=== PATIENT | male | born 1975 | race Asian ===

== ENCOUNTER 2023-11-25 12:22 | Emergency (ER) | payer BC, SELFPAY ==
[2023-11-25 12:23] VITALS: BP 123/88
--- NOTE | 2023-11-25 13:07 | ED.GENMED ---
History of Present Illness
General
Chief Complaint: Abdominal Symptoms
Time Seen by Provider: 11/25/23 12:43
History of Present Illness
History of Present Illness:
48-year-old male with history of diabetes, insulin-dependent, hyperlipidemia presenting to the emergency department for abdominal pain. Patient reports about 8 days ago he started to have some lower back pain. Few days later, progressed to right
lower quadrant pain. Pain was initially a dull ache, has now become more constant. He is now also having left lower quadrant pain as of yesterday. Denies any associated nausea or vomiting. Denies changes in his stool. Denies chest pain or
difficulty breathing. Does report history of diverticulitis in the past. Denies any abdominal surgeries. Denies any fever. Denies any inciting injury or trauma. Denies any additional medical complaints
Past History
Past History
ED Past Medical History: Asthma, HTN, Hypercholesterolemia, IDDM, Psychiatric and Other (Obstructive sleep apnea, degenerative joint disease)
ED Past Surgical History: Orthopedic
Social History
Tobacco: Non-smoker
Alcohol: None
Drug: None
Personal:
Living: with family
Family History
Family History: Diabetes and Other (Father had a stroke)
Phy Exam
Physical Exam
Physical Exam:
General: Well-appearing, no clinical signs of dehydration, nontoxic and in no acute distress
HEENT: protecting airway
Neck: appears supple
CV: Normal heart rate, regular rhythm
Resp: No accessory muscle use, no increased work of breathing, lungs clear to auscultation bilaterally
Abd: Soft and non-distended, reproducible right lower and left lower quadrant pain without rebound or guarding
Extremities: No deformities, no swelling, no erythema
Neuro: alert, no focal neurologic deficit
: deferred
Rectal: deferred
Psych: Normal affect
Skin: Intact
Course
Orders/Labs/Results
Orders:
Orders
11/25/23 12:55
0.9% Sodium Chloride 1000 ml [Nss] 1,000 ml IV BOLUS
Iohexol [Omnipaque] See Protocol PO NOW STA
Ketorolac [Toradol] 15 mg IV NOW STA
11/25/23 12:56
CT Abd/pel W Iv And Oral Contr Urgent
Comment:
Reason For Exam: RLQ pain
11/25/23 13:26
Complete Blood Count/With Diff Urgent
Comprehensive Metabolic Panel Urgent
Lipase Urgent
Urinalysis Reflex To Culture Urgent
Date Specimen was Collected: 11/25/23
Time Specimen was Collected: 13:20
11/25/23 13:26
11/25/23 13:26
Vital Signs
Initial and Last Documented VS:
Initial Vital Signs
Temp Pulse Resp BP Pulse Ox
98.6 F 87 16 123/88 98
11/25/23 12:23 11/25/23 12:23 11/25/23 12:23 11/25/23 12:23 11/25/23 12:23
Last Documented Vital Signs
Temp Pulse Resp BP Pulse Ox
98.6 F 70 16 133/115 92
11/25/23 12:23 11/25/23 15:06 11/25/23 15:06 11/25/23 15:07 11/25/23 15:06
MDM/Problems Addressed
MDM/Problems Addressed:
48-year-old male with past medical history of diabetes and hyperlipidemia presenting for lower abdominal pain. Vital signs are normal.
On exam, patient well-appearing, nontoxic. No acute distress. Patient with reproducible right lower quadrant and left lower quadrant pain. Differential considerations include diverticulitis, enteritis, appendicitis. For this reason we will
proceed with laboratory analysis and CT abdominal imaging with IV and oral contrast. Toradol administered for pain. Will administer IV fluids.
17:10 -Labs unremarkable. CT without evidence of acute process. At this time suspect musculoskeletal component. Patient remains hemodynamically stable. Feel stable for discharge. Advised Motrin as needed for pain. Strict return precautions
communicated to patient verbalized
*Critical Care Note
Total Time (30-74mins, 75-104mins- exclusive of procedures): Not Applicable
ED Attending Note
-
Portions of this chart may have been created with voice recognition software.� Occasional wrong word or��sound alike� substitutions may have occurred due to the inherent limitations of voice recognition software.
Discharge Plan
Departure
Prescriptions:
No Action
citalopram 20 MG tablet
40 mg PO DAILY
simvastatin 20 MG tablet
20 mg PO QPM
metformin 1,000 MG tablet
1,000 mg PO BID
losartan 25 MG tablet
25 mg PO DAILY
albuterol sulfate [Albuterol Sulfate HFA] 18 GM HFA aerosol inhaler
18 gm inhalation DAILY PRN (Reason: sob)
bupropion HCl 150 MG tablet extended release 24 hr
300 mg PO DAILY
fenofibrate nanocrystallized 145 MG tablet
145 mg PO DAILY
insulin aspart (niacinamide) [Fiasp U-100 Insulin] 100 UNIT/ML solution
100 unit SQ .PUMP
Patient Comments:
sensitivity 15
carbs 6-1
dulaglutide [Trulicity] 1.5 MG/0.5 ML pen injector
1.5 mg SQ WEEKLY
Referrals:
Jyoti Chau MD [Family Provider] -
Interventions
Interventions:
*Risk Screen - Suicide Last Done: 11/25/23 13:19
*General Assessment Last Done: 11/25/23 13:19
*Neglect/Abuse Screening Last Done: 11/25/23 13:19
ED- Fall Risk Assessment Last Done: 11/25/23 13:19
*ED COVID-19 Vaccine History Last Done: 11/25/23 13:19
PQ-Gxbsrh-Wgsfrwxqzj Assessment Last Done: 11/25/23 13:19
Discharge Date and Time
Print Language: HUNGARIAN
[2023-11-25 13:19] VITALS: BMI 32.6
[2023-11-25] MEDS: TORADOL 15 MG IV (13:35)
[2023-11-25] MEDS: NSS 1000 IV (13:35)
[2023-11-25] MEDS: OMNIPAQUE 50 ML PO (13:36)
[2023-11-25 13:38] VITALS: BP 128/77
[2023-11-25 13:58] LABS: % Basophils 0.7 % (0-2); % Eosinophils 2.2 % (0-6); % Immature Granulocytes 0.2 % (0-0.5); % Lymphocytes 33.7 % (20.5-51.1); % Monocytes 7.1 % (1.7-9.3); % Neutrophils 56.1 % (42.2-75.2); Absolute Eosinophils 0.1 10^3/uL (0-0.7); Absolute Lymphocytes 1.9 10^3/uL (1.2-3.4); Absolute Monocytes 0.4 10^3/uL (0.1-0.6); Absolute Neutrophils 3.1 10^3/uL (1.4-6.5); Hemoglobin 14.5 g/dL (13.0-18.0); Mean Corp Hgb Conc. 35.4 g/dL (33.0-37.0); Mean Corpuscular Hgb 30.9 pg (27.0-31.0); Mean Corpuscular Volume 87.2 fL (80.0-94.0); Mean Platelet Volume 9.8 fL (7.4-10.4); Nucleated Red Blood Cells % 0 % (-); Platelet Count 394 10^3/uL (130-400); Red Cell Dist. Width 12.8 % (11.5-14.5); White Blood Cell Count 5.5 10^3/uL (4.8-10.8)
[2023-11-25 14:00] VITALS: BP 124/80
[2023-11-25 14:08] LABS: Urine Albumin Negative (Neg - Trace); Urine Bilirubin Negative (Negative); Urine Character Clear (Clear); Urine Color Yellow; Urine Glucose Negative (Negative); Urine Ketone Negative (Negative); Urine Leukocyte Negative (Negative); Urine Nitrite Negative (Negative); Urine Occult Blood Negative (Negative); Urine Urobilinogen Negative (Neg - 1+)
[2023-11-25 14:17] LABS: ALT (SGPT) 34 U/L (0-50); AST (SGOT) 32 U/L (17-59); Albumin 4.7 g/dl (3.5-5.0); Alkaline Phosphatase 49 U/L (38-126); Blood Urea Nitrogen 18 mg/dl (9-20); Calcium 10.2 mg/dl (8.4-10.2); Carbon Dioxide 26 mmol/L (22-30); Chloride 105 mmol/L (98-107); Estimated Creatinine Clearance 100 ml/min; Glucose 90 mg/dl (70-99); Lipase 173 U/L (23-300); Potassium 4.4 mmol/L (3.5-5.1); Sodium 139 mmol/L (135-145); Total Bilirubin 0.4 mg/dl (0.2-1.3); Total Protein 7.1 g/dl (6.3-8.2); eGFR > 60.00
[2023-11-25 15:00] VITALS: BP 122/86
[2023-11-25 15:07] VITALS: BP 133/115
[2023-11-25 17:26] VITALS: BP 125/81
== END 2023-11-25 17:26 | disposition home or self-care (01) ==
LOC: EMR 12:22
PROVIDERS: EMERGENCY PHYSICIAN Student in an Organized Health Care Education/Training Program; FAMILY PHYSICIAN Family Medicine
DX: R10.30 Lower abdominal pain, unspecified (principal); E11.9 Type 2 diabetes mellitus without complications; E78.00 Pure hypercholesterolemia, unspecified
CPT/HCPCS: 99285; 96374; 96361; 74177; 80053; 81003; 83690; 85025; Q9967

== ENCOUNTER 2024-01-15 15:46 | Emergency (ER) | payer BC, SELFPAY ==
[2024-01-15 15:50] VITALS: BP 123/79
[2024-01-15 16:13] LABS: % Basophils 0.5 % (0-2); % Immature Granulocytes 0.3 % (0-0.5); % Lymphocytes 24.3 % (20.5-51.1); % Monocytes 6.6 % (1.7-9.3); % Neutrophils 66.3 % (42.2-75.2); Absolute Eosinophils 0.2 10^3/uL (0-0.7); Absolute Lymphocytes 1.8 10^3/uL (1.2-3.4); Absolute Monocytes 0.5 10^3/uL (0.1-0.6); Hematocrit 43.5 % (39.0-52.0); Mean Corp Hgb Conc. 34.5 g/dL (33.0-37.0); Mean Corpuscular Hgb 30.5 pg (27.0-31.0); Mean Corpuscular Volume 88.6 fL (80.0-94.0); Mean Platelet Volume 9.8 fL (7.4-10.4); Nucleated Red Blood Cells % 0 % (-); Platelet Count 405 10^3/uL (130-400); Red Blood Cell Count 4.91 10^6/uL (4.70-6.10); Red Cell Dist. Width 12.9 % (11.5-14.5); White Blood Cell Count 7.6 10^3/uL (4.8-10.8)
[2024-01-15 16:27] LABS: ALT (SGPT) 41 U/L (0-50); AST (SGOT) 36 U/L (17-59); Albumin 4.9 g/dl (3.5-5.0); Alkaline Phosphatase 58 U/L (38-126); Blood Urea Nitrogen 18 mg/dl (9-20); Carbon Dioxide 25 mmol/L (22-30); Chloride 105 mmol/L (98-107); Glucose 141 mg/dl (70-99); Potassium 5.1 mmol/L (3.5-5.1); Sodium 145 mmol/L (135-145); Total Bilirubin 0.4 mg/dl (0.2-1.3); Total Protein 7.5 g/dl (6.3-8.2); eGFR > 60.00
--- NOTE | 2024-01-15 16:45 | ED.GENMED ---
History of Present Illness
General
Chief Complaint: Headache
Source: patient
Exam Limitations: none
Time Seen by Provider: 01/15/24 16:31
Nursing documentation reviewed up to this point in time: agreed with
History of Present Illness
History of Present Illness:
48-year-old male with past medical history of asthma, hypertension, hyperlipidemia, diabetes, ORALIA on CPAP who presents to the ER for evaluation of headache. Patient reports onset of symptoms 2 weeks ago gradually and symptoms have been constant
since that time although intensity seems to wax and wane. He says headache seems to be somewhat better in the morning and worse as the day goes on. He describes headache in a halo distribution, throbbing quality, mild to moderate intensity. He
reports associated nausea and occasional dry heaving. No vomiting. No fevers or chills. He reports mild associated dizziness. He denies any change in his vision or speech. He denies any neck pain or stiffness. Denies any weakness or numbness
in extremities. He denies any trauma to the head. He says he has had 'migraines' in the past but never symptoms this severe. He says that his reason for presentation today was that he called for a neurology appointment and they were unable to see
him for about 3 months and so he was recommended to go to the emergency room to be evaluated.
Past History
Past History
ED Past Medical History: Asthma, HTN, Hypercholesterolemia, IDDM, Psychiatric and Other (Obstructive sleep apnea, degenerative joint disease)
ED Past Surgical History: Orthopedic
Social History
Tobacco: Non-smoker
Alcohol: None
Drug: None
Personal:
Living: with family
Family History
Family History: Diabetes and Other (Father had a stroke)
Review of Systems
Review of Systems
All Other Systems: ROS reviewed and negative except as documented in HPI and ROS
Constitutional: Denies fever or chills
EENT: Denies sore throat or runny nose
Respiratory: Denies cough or trouble breathing
Cardiac: Denies chest pain or palpitations
ABD/GI: Denies abdominal pain, nausea or vomiting
: Denies flank pain
Musculoskeletal: Denies neck pain or back pain
Neurological: Reports dizzy and headache; Denies weakness or numbness
Phy Exam
Physical Exam
Physical Exam:
General: Awake, alert, oriented x3; laying in bed with lights off; nontoxic
Head: Normocephalic, atraumatic
Eyes: Conjunctiva normal, EOMI, pupils equal round reactive to light bilaterally
Throat: Airway intact, handling secretions
Neck: Trachea midline, supple without meningismus, negative Kernig and Brudzinski
Lungs: Clear to auscultation bilaterally, no wheezing, rales, rhonchi
Heart: Regular rate and rhythm, no murmurs, gallops, or rubs
Abd: Soft, non distended, nontender
Neuro: Cranial nerves intact 2 through 12, speech fluid with no dysarthria or aphasia, no limb ataxia, motor and sensory function intact proximally distally upper and lower extremities
Skin: no rash
Extremities: No edema in extremities, equal pulses in all extremities
Scores
Heart Failure Risk
Heart Failure Risk Score: Not Applicable
Heart Score for Chest Pain Patients
STEMI patient?: Not applicable
Withdrawal Assessment of Alcohol
Withdrawal Assessment Completed?: Not applicable
Course
Orders/Labs/Results
Orders:
Orders
01/15/24 15:49
Electrocardiogram (*1) Urgent
Reason for Study: Vertigo / Dizzy
EKG- Treatment ONCE
01/15/24 16:05
CMP [Comprehensive Metabolic Panel] Urgent
Complete Blood Count/With Diff Urgent
01/15/24 16:31
CT Head W/o Iv Contrast Urgent
Comment:
Reason For Exam: FLOWERS, N/V, dizzy
01/15/24 16:42
Acetaminophen [Tylenol] 1,000 mg PO NOW STA
01/15/24 16:43
0.9% Sodium Chloride 1000 ml [Nss] 1,000 ml IV BOLUS
01/15/24 17:36
COVID-19 Antigen Urgent
Source: Nasal Swab
01/15/24 18:04
Diphenhydramine [Benadryl] 25 mg IV NOW STA
Ketorolac [Toradol] 15 mg IV NOW STA
Magnesium Sulfate 2 Gram/50 ml [Magnesium Sulfate] 2 gram in 50 ml IV NOW
Metoclopramide [Reglan] 10 mg IV NOW STA
Abnormal Lab Results
01/15/24
16:05
Plt Count 405 H 10^3/uL
(130-400)
Glucose 141 H mg/dl
(70-99)
01/15/24 16:05
01/15/24 16:05
Vital Signs
Initial and Last Documented VS:
Initial Vital Signs
Temp Pulse Resp BP Pulse Ox
36.6 C 103 20 123/79 97
01/15/24 15:50 01/15/24 15:50 01/15/24 15:50 01/15/24 15:50 01/15/24 15:50
Last Documented Vital Signs
Temp Pulse Resp BP Pulse Ox
36.6 C 89 20 116/88 98
01/15/24 15:50 01/15/24 19:01 01/15/24 15:50 01/15/24 19:01 01/15/24 19:01
MDM/Problems Addressed
Differential Diagnosis Includes:
Tension headache, migraine headache, cluster headaches, brain mass; brain bleed, meningitis considered less likely based on history and exam
MDM/Problems Addressed:
48-year-old male presents for evaluation of persistent headache x 2 weeks associate with nausea and dizziness. No head trauma. Waxing and waning intensity somewhat better in the morning and worse in the evening. Tachycardic otherwise normal
vitals. Physical exam as above. Plan to check labs including a CBC and a CMP. Check COVID swab. Check CT head. Provide fluids, treat symptomatically. Reassess after the above. In my judgment clinical suspicion for subarachnoid hemorrhage is
very low with gradual onset of symptoms, not severe in intensity, waxing and waning symptoms x 2 weeks; similarly very low clinical suspicion for acute meningitis with no fever despite 2 weeks worth of symptoms, no neck stiffness or meningeal signs
on exam�in my judgment no indication for emergent lumbar puncture at this point.
Labs reviewed: CBC and CMP unremarkable. COVID-negative. CT head negative. On clinical reassessment after ED treatment patient says he is feeling much better. Low clinical suspicion for emergent pathology at this point in time. Possible
symptoms related to allergies/sinus headache versus recurrent migraines versus tension headaches. He feels comfortable with discharge home. I explained to him that if his symptoms should return or worsen he should return to the emergency room for
consideration of neurology consultation and further workup. He feels comfortable with this plan. Otherwise he will follow-up with his primary doctor. Spoke about return precautions and all questions answered.
*Radiology
Radiology exam reviewed: radiology read reviewed
*Pulse Oximetry
Patient hypoxic: no
*EKG
Interpreted by ED Provider?: Yes
Heart Rate: 93
Rate: normal
Rhythm: sinus
[place]: normal axis
Interval: normal interval
QRS Pattern: normal QRS
Ischemia: no ischemia
*Critical Care Note
Total Time (30-74mins, 75-104mins- exclusive of procedures): Not Applicable
Data Reviewed
Source: patient
Further Testing Considered But Not Given:
Considered lumbar puncture
ED Attending Note
-
Portions of this chart may have been created with voice recognition software.� Occasional wrong word or��sound alike� substitutions may have occurred due to the inherent limitations of voice recognition software.
Discharge Plan
Departure
Patient Disposition: Home (Routine Discharge)
Date of Disposition: 01/15/24
Time of Disposition: 19:57
Patient with high blood pressure during this ER visit?: No
Discharge Problem:
Headache
Instructions: Headache, Adult (DC)
Prescriptions:
No Action
citalopram 20 MG tablet
40 mg PO DAILY
simvastatin 20 MG tablet
20 mg PO QPM
metformin 1,000 MG tablet
1,000 mg PO BID
losartan 25 MG tablet
25 mg PO DAILY
albuterol sulfate [Albuterol Sulfate HFA] 18 GM HFA aerosol inhaler
18 gm inhalation DAILY PRN (Reason: sob)
bupropion HCl 150 MG tablet extended release 24 hr
300 mg PO DAILY
fenofibrate nanocrystallized 145 MG tablet
145 mg PO DAILY
insulin aspart (niacinamide) [Fiasp U-100 Insulin] 100 UNIT/ML solution
100 unit SQ .PUMP
Patient Comments:
sensitivity 15
carbs 6-1
dulaglutide [Trulicity] 1.5 MG/0.5 ML pen injector
1.5 mg SQ WEEKLY
ibuprofen 600 mg tablet
600 mg PO Q8H PRN (Reason: Pain) Qty: 20 0RF
Referrals:
Jyoti Chau MD [Family Provider] - Follow up in 5-7 days
Activity Restrictions/Additional Instructions:
Thank you for visiting the Emergency Department at [facility].
1. Please schedule a follow up appointment as directed. Call first thing tomorrow morning to make an appointment.
2. If indicated, please take your medications as instructed and indicated on discharge paperwork.
3. If any of your symptoms do not improve, or persist, or become more severe within 6-12 hours, please return to the emergency department for further care.
4. Please return to the emergency department if you develop a headache, neck pain/stiffness, fever greater than 100.4F, chest pain, shortness of breath, persistent nausea, vomiting, slurred speech, difficulty walking, numbness/tingling, weakness,
signs of infection or any other symptoms that are worrisome to you.
Please call [phone] if you have any questions.
Interventions
Interventions:
*Risk Screen - Suicide Last Done: 01/15/24 15:50
*General Assessment Last Done: 01/15/24 15:50
*Neglect/Abuse Screening Last Done: 01/15/24 15:50
*ED COVID-19 Vaccine History Last Done: 01/15/24 19:02
ED- Neurological Assessment Last Done: 01/15/24 16:48
ED Swallowing Screen Last Done: 01/15/24 16:48
Discharge Date and Time
Print Language: SETSWANA
[2024-01-15] MEDS: TYLENOL 1000 MG PO (17:11)
[2024-01-15 17:39] VITALS: BP 116/77
[2024-01-15] MEDS: NSS 1000 IV (17:39)
[2024-01-15 18:04] LABS: COVID-19 Antigen Negative (Negative)
[2024-01-15] MEDS: TORADOL 15 MG IV (18:37)
[2024-01-15] MEDS: REGLAN 10 MG IV (18:40)
[2024-01-15] MEDS: BENADRYL 25 MG IV (18:40)
[2024-01-15 19:01] VITALS: BP 116/88
[2024-01-15] MEDS: MAGNESIUM SULFATE 50 IV (19:04)
== END 2024-01-15 20:17 | disposition home or self-care (01) ==
LOC: EMR 15:46
PROVIDERS: Student in an Organized Health Care Education/Training Program; EMERGENCY PHYSICIAN Emergency Medicine; FAMILY PHYSICIAN Family Medicine
DX: R51.9 Headache, unspecified (principal); J45.909 Unspecified asthma, uncomplicated; I10 Essential (primary) hypertension; E78.00 Pure hypercholesterolemia, unspecified; E11.9 Type 2 diabetes mellitus without complications; G47.33 Obstructive sleep apnea (adult) (pediatric)
CPT/HCPCS: 99284; 96365; 96375; 70450; 80053; 85025; 87811; 93005

== ENCOUNTER 2024-01-16 17:08 | Observation (INO) | payer BC, SELFPAY ==
[2024-01-16 11:40] VITALS: BP 139/97
--- NOTE | 2024-01-16 12:58 | ED.GENMED ---
History of Present Illness
General
Chief Complaint: Headache
Time Seen by Provider: 01/16/24 12:36
History of Present Illness
History of Present Illness:
Patient presents to the emergency department with headache. Symptoms started around 2 weeks ago. Symptoms preceded by a visual aura. Afterwards he developed headache. Headache is waxing and waning. Notes that it is currently moderate around a 6
out of 10 in severity. Denies fevers, chills, neck pain, rash. Does have a history of migraine and states headache feels similar however this time it is accompanied by nausea and dizziness which is new. He he was unable to see his previous
neurologist and tried scheduling appointment with a new neurologist at [place] however he was unable to get an appointment for 3 months and he states that he cannot wait that long. He was seen in the emergency department yesterday and had a
negative head CT. He had a migraine cocktail that resolved his symptoms. States when he woke up this morning his headache had returned which is why he presents to the ER
Past History
Past History
ED Past Medical History: Asthma, HTN, Hypercholesterolemia, IDDM, Psychiatric and Other (Obstructive sleep apnea, degenerative joint disease)
ED Past Surgical History: Orthopedic
Social History
Tobacco: Non-smoker
Alcohol: None
Drug: None
Personal:
Living: with family
Family History
Family History: Diabetes and Other (Father had a stroke)
Phy Exam
Physical Exam
Physical Exam:
GENERAL APPEARANCE: NAD, well developed/ well nourished
EYES lids/conjunctiva normal
EARS/NOSE/THROAT Mucous membranes moist, uvula midline without oral pharyngeal erythema, exudate or swelling
HEAD/NECK normocephalic atraumatic, neck is supple, no meningismus
RESPIRATORY respiratory effort normal, speaks in full sentences, no accessory muscle use. Lungs clear to auscultation without rhonchi, wheezes, rales
CARDIAC Regular rate and rhythm, no edema.
ABDOMINAL Soft, ND/NT.
MUSCLES/EXTREMITIES No abnormal range of motion, no swelling.
SKIN Warm, pink and dry. No rashes
NEUROLOGICAL Speech is clear and appropriate. Normal level of consciousness. CN2-12 intact. 5/5 strength in all extremities. SILT throughout
PSYCH Normal mood and affect. Judgement/competence is appropriate
Course
Orders/Labs/Results
Orders:
Orders
01/16/24 Lunch
1800 calorie (15 carb) Diabetic
At Your Request: Full Participation
01/16/24 12:55
0.9% Sodium Chloride 1000 ml [Nss] 1,000 ml IV BOLUS
Dexamethasone Sod Phosphate [Decadron] 6 mg IV NOW STA
Diphenhydramine [Benadryl] 25 mg IV NOW STA
Ketorolac [Toradol] 15 mg IV NOW STA
Prochlorperazine [Compazine] 10 mg IV NOW STA
01/16/24 13:14
Prochlorperazine [Compazine] 10 mg .ROUTE .STK-MED ONE
01/16/24 13:21
Basic Metabolic Panel Urgent
Complete Blood Count/With Diff Urgent
01/16/24 16:48
Admit/Transfer Patient As Directed
Co-Sign Provider:
Level of Care: Observation services
Assign to:: Medical/Surgical
Physician / Group: hutchins/hospitalist
Diagnosis: migraine attack
PRN Pain Medication Management As Directed
May give lesser potent ordered pain med per pt: Yes
preference::
Protocol:: Medication orders for pain may be administered in a
manner that supports deferring to patient preference
when the pt is:
- Requesting an ordered lesser potent pain medication.
Least to most potent pain medications are defined
as: acetaminophen < NSAID < tramadol < opioids
(morphine, oxycodone, hydromorphone).
- Requesting a lesser dose of the same medication IF
ORDERED.
- Requesting a less intrusive route of administration
if both routes are prescribed by the provider (PO <
IV).
01/16/24 16:50
Code Status As Directed
Resuscitation Status: Full Code
01/16/24 19:14
0.9% Sodium Chloride 1000 ml [Nss] 1,000 ml IV 100 mls/hr
Acetaminophen [Tylenol] 650 mg PO Q4HPRN PRN
Bisacodyl [Dulcolax] 10 mg RECTAL [id number] PRN
Diphenhydramine [Benadryl] 25 mg IV Q8HPRN PRN
Docusate W/Senna [Senokot-S] 1 tablet PO BIDPRN PRN
Metoclopramide [Reglan] 10 mg IV Q8HPRN PRN
Polyethylene Glycol Powder [Miralax] 17 grams PO DAILYPRN PRN
01/16/24 19:14
MR Brain Without Contrast Routine
Comment:
Reason For Exam: migraine attack. persistent
Recent pill cam endoscopy?: No
Activity As Directed
Activity Level: Out of Bed-Early Mobility
Sequential Compression Device [Pneumatic Compression Sleeves] As Directed
Type: Knee high
Vital Signs As Directed
Frequency: Per unit guidelines
Cpap [RESP] Routine
Patient to use own unit?: Yes
DX Deep Vein Thrombosis Video Routine
01/16/24 19:24
Ketorolac [Toradol] 30 mg IV Q8HPRN PRN
01/16/24 19:30
Atorvastatin [Lipitor] 10 mg PO QPM
01/16/24 22:00
Cetirizine HCl [Zyrtec] 10 mg PO HS
Losartan [Cozaar] 25 mg PO HS
01/17/24 06:00
Basic Metabolic Panel IN AM
CRP [C-Reactive Protein] IN AM
D-Dimer IN AM
ESR [Erythrocyte Sed Rate] IN AM
01/17/24 08:00
Bupropion(24Hr)Extended Releas [WELLBUTRIN XL (24 hour extended release)] 300 mg PO DAILY
Citalopram [Celexa] 40 mg PO DAILY
Fenofibrate 145 [Tricor] 145 mg PO DAILY
Abnormal Lab Results
01/16/24
13:21
RBC 4.48 L 10^6/uL
(4.70-6.10)
Glucose 127 H mg/dl
(70-99)
01/16/24 13:21
01/16/24 13:21
Vital Signs
Initial and Last Documented VS:
Initial Vital Signs
Temp Pulse Resp BP Pulse Ox
97.9 F 84 18 139/97 96
01/16/24 11:40 01/16/24 11:40 01/16/24 11:40 01/16/24 11:40 01/16/24 11:40
Last Documented Vital Signs
Temp Pulse Resp BP Pulse Ox
98.9 F 83 18 130/83 95
01/16/24 19:50 01/16/24 19:50 01/16/24 19:50 01/16/24 19:50 01/16/24 19:50
*Critical Care Note
Total Time (30-74mins, 75-104mins- exclusive of procedures): Not Applicable
ED Attending Note
ED Attending Note
ED Attending Note:
Patient presents with persistent headache. He is nontoxic-appearing, afebrile, neurologically intact. Doubt emergent cause of headache such as intracranial hemorrhage, meningitis, intracranial hypertension, given gradual onset and symptoms lasting
2 weeks. Will treat symptomatically and reach out to neurology.
Seen By Dr. Sanders with neurology. Recommending admission for further evaluation and management.
-
Portions of this chart may have been created with voice recognition software.� Occasional wrong word or��sound alike� substitutions may have occurred due to the inherent limitations of voice recognition software.
Discharge Plan
Departure
Patient Disposition: Admit
Date of Disposition: 01/16/24
Time of Disposition: 16:10
Presentation/result/management discussed w/ accepting MD/DO: Hospitalist
Discharge Problem:
Headache
Interventions
Interventions:
*Risk Screen - Suicide Last Done: 01/16/24 19:51
*General Assessment Last Done: 01/16/24 11:40
*Neglect/Abuse Screening Last Done: 01/16/24 11:40
*ED COVID-19 Vaccine History Last Done: 01/16/24 19:51
*Nursing Disposition Last Done: 01/16/24 19:19
ED- Neurological Assessment Last Done: 01/16/24 12:14
Discharge Date and Time
Discharge Date/Time: 01/16/24 19:20
[2024-01-16] MEDS: BENADRYL 25 MG IV (13:12)
[2024-01-16] MEDS: TORADOL 15 MG IV (13:12)
[2024-01-16] MEDS: NSS 1000 IV ×2 (13:13→20:27)
[2024-01-16] MEDS: DECADRON 6 MG IV (13:13)
[2024-01-16] MEDS: COMPAZINE 10 MG IV (13:15)
[2024-01-16 13:30] LABS: % Basophils 0.5 % (0-2); % Eosinophils 2.5 % (0-6); % Immature Granulocytes 0.2 % (0-0.5); % Lymphocytes 27.7 % (20.5-51.1); % Monocytes 8.1 % (1.7-9.3); Absolute Eosinophils 0.2 10^3/uL (0-0.7); Absolute Lymphocytes 1.6 10^3/uL (1.2-3.4); Absolute Monocytes 0.5 10^3/uL (0.1-0.6); Absolute Neutrophils 3.6 10^3/uL (1.4-6.5); Hematocrit 39.6 % (39.0-52.0); Hemoglobin 13.7 g/dL (13.0-18.0); Mean Corp Hgb Conc. 34.6 g/dL (33.0-37.0); Mean Corpuscular Hgb 30.6 pg (27.0-31.0); Mean Corpuscular Volume 88.4 fL (80.0-94.0); Nucleated Red Blood Cells % 0 % (-); Platelet Count 370 10^3/uL (130-400); Red Blood Cell Count 4.48 10^6/uL (4.70-6.10); White Blood Cell Count 5.9 10^3/uL (4.8-10.8)
[2024-01-16 13:43] LABS: Blood Urea Nitrogen 18 mg/dl (9-20); Calcium 9.7 mg/dl (8.4-10.2); Carbon Dioxide 24 mmol/L (22-30); Chloride 105 mmol/L (98-107); Glucose 127 mg/dl (70-99); Potassium 4.4 mmol/L (3.5-5.1); Sodium 142 mmol/L (135-145); eGFR > 60.00
--- NOTE | 2024-01-16 15:15 | CON.NEURO ---
Consultation
Order
Date of Consultation: 01/16/24
Requesting Provider:
Reason for Consult: Headache this is a 48-year-old man who presented to [facility] on
CC: headache
HPI: This is a 48-year-old RH man who presented to [facility] on January 16, 2024 with headache. According to the patient he developed gradual in onset holocephalic/retro-orbital moderate to severe nonpositional throbbing headache
with associated vertigo, nausea and imbalance 2 weeks ago. The headache is worse by the end of the day and with physical exertion. No reports of head trauma, fever, autonomic phenomena, motor or visual deficits.
No recently started to discontinue medications. The patient has been on Wellbutrin for many years and has been compliant with CPAP. He does admit to excessive caffeine use.
Mr. Vance has been taking ewyz-igm-vevxzni Tylenol and aspirin as well as Dramamine without significant clinical improvement. He was seen at [facility] on 01/15/2024 and was given IV migraine cocktail with significant improvement however his
symptoms returned leading to the ER visit.
Elvis states that he has similar headache, however without associated vertigo, around 5-6 years ago. He was seen by OP neurologist and was treated with Aimovig. He stopped Aimovig after a couple of months and used Tylenol for rescue therapy of
episodic headache until recently.
ER VS: 139/97, 84, afebrile
PDMP:no Rxed meds
Labs: gluc 127, normal WBC, Na, Cr
CT head wo contrast(01/15/2024) showed no acute abnormalities
PMH: migraine with aura, allergic rhinitis, HTN, DLP. type II DM, hepatic steatosis, EDWARDO, MDD, obesity, ORALIA, vit B12 deficiency
PSH:left knee arthroscopy, R median nerve release, lasik
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
FH:DM, no history of migraines
All:NKDA
ROS:Constitutional: Negative. Negative for chills, fever and unexpected weight change.
HENT: Positive for chronic tinnitus, positive for vertigo.
Eyes: Negative. Negative for photophobia, pain and visual disturbance.
Respiratory: Negative for cough, choking and shortness of breath.
Cardiovascular: Negative for chest pain, palpitations and leg swelling.
Gastrointestinal: Positive for nausea.
Endocrine: Negative. Negative for cold intolerance.
Genitourinary: Negative for dysuria, flank pain and urgency.
Musculoskeletal: Negative for back pain, gait problem, neck pain and neck stiffness.
Skin: Negative for rash.
Allergic/Immunologic: Negative. Negative for immunocompromised state.
Neurological: Positive for headache, imbalance
General: Well developed. In no acute distress.
Cardio: Regular rate and rhythm without murmur. Extremities are without cyanosis or edema.
Neuro:
Mental Status: Alert, oriented to person, place, and date. Normal attention and recall. Good fund of knowledge. Follows complex requests across the midline. Comprehension, naming, and repetition intact. Immediate and delayed recall 3/3.
Cranial Nerves: . Pupils are equally round and reactive to light. EOMs full. Visual guzman full to confrontation. No ptosis. No nystagmus. V1-V3 intact to light touch and pinprick bilaterally, symmetric. Face symmetric. Normal hearing AU.
The palate elevated well. SCMs and traps 5/5. Tongue midline. No dysarthria.
Motor: Normal bulk and tone. No pronator or arm drift. Strength 5/5 throughout. No clonus.
Reflexes: 2+ throughout the upper extremities and knees. 2/2 in AJs. Plantar responses flexor bilaterally.
Sensory: Normal pinprick, vibration and JPS.
Coordination: No dysmetria or tremor.
Gait: deferred
Assessment and Plan:
I. Status migrainous
II. Episodic migraine with aura.
III. Vertigo.
-IV hydration
-IV Toradol 30 mg, Reglan 10 mg, Benadryl 25 mg Q8h IV PRN for moderate to severe headache.
-Please check ESR/CRP, D dimers, Mg
-Brain MRI wo edwardo
-ENT consult(OP audiometry)
-Sumatriptan 6 mg once. If symptoms persist or return, may repeat dose after >= hour. Maximum dose: 12 mg per 24 hours.
I personally reviewed all radiology and labs along with past medical records pertinent to current medical problems. Total time spent in patient care is 60 minutes.
Thank you for allowing us to participate in the care of this patient. We will continue to follow. Please do not hesitate to contact us with any questions or concerns.
Subjective/Objective
Subjective Data
Date of Service: January 16, 2024
Objective Data
Vital Signs
Temp Pulse Resp BP Pulse Ox
36.6 C 84 18 139/97 96
01/16/24 11:40 01/16/24 11:40 01/16/24 11:40 01/16/24 11:40 01/16/24 11:40
Lab Results
01/16/24 13:21
01/16/24 13:21
Sodium 142 mmol/L (135-145) 01/16/24 13:21
Potassium 4.4 mmol/L (3.5-5.1) 01/16/24 13:21
BUN 18 mg/dl (9-20) 01/16/24 13:21
Glucose 127 mg/dl (70-99) H 01/16/24 13:21
Calcium 9.7 mg/dl (8.4-10.2) 01/16/24 13:21
Patient Allergies
bee venom protein (honey bee) Allergy (Verified 01/15/24 15:54)
severe localized swelling
Medications
-
Home Medications
�Medication �Instructions �Recorded
albuterol sulfate 90 mcg/actuation 18 gm inhalation DAILY PRN sob 07/04/17
aerosol inhaler (Albuterol Sulfate
HFA)
bupropion HCl 150 mg 24 hr tablet, 300 mg PO DAILY 07/04/17
extended release
citalopram 20 mg tablet 40 mg PO DAILY 07/04/17
fenofibrate nanocrystallized 145 145 mg PO DAILY 07/04/17
mg tablet
losartan 25 mg tablet 25 mg PO DAILY 07/04/17
metformin 1,000 mg tablet 1,000 mg PO BID 07/04/17
simvastatin 20 mg tablet 20 mg PO QPM 07/04/17
insulin aspart (niacinamide) 100 unit SQ .PUMP 08/19/18
(U-100) 100 unit/mL subcutaneous
solution (Fiasp U-100 Insulin)
dulaglutide 1.5 mg/0.5 mL 1.5 mg SQ WEEKLY 01/18/19
subcutaneous pen injector
(Trulicity)
ibuprofen 600 mg tablet 600 mg PO Q8H PRN Pain #20 tabs 11/25/23
Vital Signs and Labs
-
Vital Signs and Labs:
Vital Signs
Temp Pulse Resp BP Pulse Ox
36.6 C 84 18 139/97 96
01/16/24 11:40 01/16/24 11:40 01/16/24 11:40 01/16/24 11:40 01/16/24 11:40
Lab Results
01/16/24 13:21
01/16/24 13:21
Sodium 142 mmol/L (135-145) 01/16/24 13:21
Potassium 4.4 mmol/L (3.5-5.1) 01/16/24 13:21
BUN 18 mg/dl (9-20) 01/16/24 13:21
Glucose 127 mg/dl (70-99) H 01/16/24 13:21
Calcium 9.7 mg/dl (8.4-10.2) 01/16/24 13:21
Home Medications
-
Home Medications
albuterol sulfate 90 mcg/actuation aerosol inhaler (Albuterol Sulfate HFA) 18 gm inhalation DAILY PRN sob 07/04/17
bupropion HCl 150 mg 24 hr tablet, extended release 300 mg PO DAILY 07/04/17
citalopram 20 mg tablet 40 mg PO DAILY 07/04/17
fenofibrate nanocrystallized 145 mg tablet 145 mg PO DAILY 07/04/17
losartan 25 mg tablet 25 mg PO DAILY 07/04/17
metformin 1,000 mg tablet 1,000 mg PO BID 07/04/17
simvastatin 20 mg tablet 20 mg PO QPM 07/04/17
insulin aspart (niacinamide) (U-100) 100 unit/mL subcutaneous solution (Fiasp U-100 Insulin) 100 unit SQ .PUMP 08/19/18
dulaglutide 1.5 mg/0.5 mL subcutaneous pen injector (Trulicity) 1.5 mg SQ WEEKLY 01/18/19
ibuprofen 600 mg tablet 600 mg PO Q8H PRN Pain #20 tabs 11/25/23
--- NOTE | 2024-01-16 16:35 | HPS.HSE ---
Family Physician
-
Family Physician: Jyoti Chau
Chief Complaint
-
headache
History of Present Illness
48 yo male past medical history extensive as below is presenting from home with persistent headache. Patient has history of migraine headache and has been well-controlled and without symptoms for quite some period of time. Recently started
developing headache 2 weeks ago which has slowly been increasing in intensity. Patient was seen in ER yesterday and received IV medication was discharged home. Patient said he went home and headache returned with increased intensity. Also stated
of vertigo/dizziness. Stated of motion sickness. States of chronic visual disturbances due to prior eye laser surgery. Denies any other focal neurological deficit. States headache has improved with medication received in the ER earlier today.
States of chronic stress at work but not more than usual. Unclear of any triggering factor for migraine. Was treated with aimovig and was taking OTC meds as outpatient.
Medical History
Past Medical History
Past Medical History: Reports Other
Additional Past Medical History:
IDDM
Asthma
ORALIA on CPAP
Migraine headache
HLD
Obesity
Past Surgical History: Reports Orthopedic and Other (Eye laser surgery )
Social History
Tobacco: Non-smoker
Alcohol: None
Personal:
Living: With Family
Employment: Employed
Family History
Family History: Not pertinent
Allergies / Home Medications
Allergies reflects when Allergies were last updated in [facility].
Home Medications with original date entered in [facility]
Allergy/Medication List:
Medications on admission are unable to be verified or confirmed at this time.
Review of Systems
-
History Source: Patient
A 12 point ROS was completed and negative except as noted: Yes
Physical Exam
Vital Signs
Vital Signs
Temp Pulse Resp BP Pulse Ox
97.9 F 84 18 139/97 96
01/16/24 11:40 01/16/24 11:40 01/16/24 11:40 01/16/24 11:40 01/16/24 11:40
Physical Exam
General: Well Developed, Well Nourished and No Apparent Distress
HEENT: NormoCephalic, Moist mucous membranes and Atraumatic
Respiratory: Clear
Cardiac: S1/S2 and Regular Rhythm; No Murmur or Rub
GI: Soft, Non Tender, Non Distended and Normal Bowel Sounds; No Organomegaly
Rectal: Deferred by Provider
Musculoskeletal: No Clubbing, No Cyanosis and No Edema
Skin: Warm; No Rash
Neuro: Awake, Alert, Oriented, AO x 3, No Motor Deficits and Nonfocal/grossly intact
Psych: Calm
Laboratory Results
-
01/16/24 13:21
01/16/24 13:21
Impression/Plan
-
#Status migrainous attack with aura
#History of migraines
#Vertigo
Start patient IV fluids
Migraine cocktail as prescribed by neurology recommended Toradol, Reglan Benadryl
May require sumatriptan if with severe headache
MRI brain as recommended by neurology
Insulin-dependent diabetes mellitus
Continue home insulin pump
Hold metformin
Continue with Accu-Cheks
ORALIA on CPAP
Spouse to bring in CPAP
Hyperlipidemia
Cont fenofibrate
Primary htn
cont losartan
Obesity
personal financial counselor on weight loss
Mood disorder
Cont bupropion/celexa
DVT prophylaxis-scds
I spent a total of 78 minutes with the patient or on the floor. More than 50% of this time involved counseling and coordination of care.
[2024-01-16 19:50] VITALS: BP 130/83
[2024-01-16] MEDS: LIPITOR 10 MG PO (20:27)
[2024-01-16] MEDS: TYLENOL 650 MG PO (20:27)
[2024-01-16] MEDS: ZYRTEC 10 MG PO (21:23)
[2024-01-16] MEDS: COZAAR 25 MG PO (21:24)
[2024-01-16 21:48] LABS: Glucose - Point of Care 224 mg/dl (70-99)
[2024-01-16 23:00] VITALS: BP 129/81
[2024-01-17] MEDS: REGLAN 10 MG IV ×2 (00:52→09:29)
[2024-01-17] MEDS: BENADRYL 25 MG IV ×2 (00:52→09:31)
[2024-01-17] MEDS: TORADOL 30 MG IV ×2 (00:52→09:30)
[2024-01-17] MEDS: NSS 1000 IV ×2 (05:33→17:13)
[2024-01-17 06:57] LABS: Erythrocyte Sed Rate 8 mm/hour (0-20)
[2024-01-17 07:01] LABS: D-Dimer 0.31 ug/mlFEU (0.00-0.50)
[2024-01-17 07:42] VITALS: BP 124/78
[2024-01-17 07:48] LABS: Blood Urea Nitrogen 17 mg/dl (9-20); Calcium 9.2 mg/dl (8.4-10.2); Carbon Dioxide 21 mmol/L (22-30); Chloride 107 mmol/L (98-107); Estimated Creatinine Clearance > 125 ml/min; Glucose 132 mg/dl (70-99); Potassium 4.2 mmol/L (3.5-5.1); Sodium 142 mmol/L (135-145); eGFR > 60.00
[2024-01-17 07:53] LABS: C-Reactive Protein < 5.00 mg/L (0.0-10.00)
[2024-01-17 08:08] LABS: Glucose - Point of Care 100 mg/dl (70-99)
--- NOTE | 2024-01-17 08:33 | W.PN.HOSP.TC ---
Today's Communication/Plan
-
await MRI brain
neuro recs
migraine cocktail
Assessment / Plan
Assessment / Plan
#Status migrainous attack with aura
#History of migraines
#Vertigo
Started patient IV fluids
ESR/CRP/D-dimer wnl.
Migraine cocktail as prescribed by neurology recommended Toradol, Reglan Benadryl
May require sumatriptan if with severe headache
MRI brain as recommended by neurology
#Insulin-dependent diabetes mellitus
Continue home insulin pump
Hold metformin
Continue with Accu-Cheks
ORALIA on CPAP
Continue CPAP
Hyperlipidemia
Cont fenofibrate
Primary htn
cont losartan
Obesity
developmental training counselor on weight loss
Mood disorder
Cont bupropion/celexa
DVT prophylaxis-scds
Anticipated Discharge: 24 - 48 hours
Subjective/Interval History
-
Date of Service: January 17, 2024
states headache is coming back
awaiting for meds
Objective Data
-
Labs:
Laboratory Results
01/17/24
06:26
Sodium 142
Potassium 4.2
Chloride 107
Carbon Dioxide 21 L
BUN 17
Creatinine 0.9
Glucose 132 H
Calcium 9.2
Vital Signs:
Vital Signs
Temp Pulse Resp BP Pulse Ox
99.3 F 96 20 129/81 97
01/16/24 23:00 01/16/24 23:00 01/16/24 23:00 01/16/24 23:00 01/16/24 23:00
I&O
01/16/24 01/17/24 01/18/24
06:59 06:59 06:59
Intake Total 480 / 480
Balance 480 / 480
Physical Exam
-
General: Well Developed and No Apparent Distress
HEENT: Normocephalic, Atraumatic and Moist Mucous Membranes
Respiratory: Clear to Auscultation
Cardiac: Regular Rhythm and S1/S2; Negative Murmur, Rub or Gallop
GI: Soft, Nontender, Nondistended and Normal Bowel Sounds; Negative Organomegaly
Rectal: Deferred by Provider
Musculoskeletal: No Clubbing, No Cyanosis and No Edema
Skin: Negative Rash
Neuro: Awake, Alert, Oriented, AO x 3, No Motor Deficits and Nonfocal/Grossly Intact
Psych: Calm
[2024-01-17] MEDS: CELEXA 40 MG PO (09:32)
[2024-01-17] MEDS: TRICOR 145 MG PO (09:32)
[2024-01-17] MEDS: WELLBUTRIN XL (24 hour extended release) 300 MG PO (09:33)
--- NOTE | 2024-01-17 11:53 | W.PN.NEURO.1 ---
Today's Communication / Plan
-
.
Subjective/Objective
Subjective Data
Date of Service: January 17, 2024
Mr. Vance reports moderate to severe headache in the morning that subsided to a mild after migraine cocktail.
No change in vision, emesis. He has been afebrile and normotensive.
Labs: normal ESR/CRP, neg D dimers.
Brain MRI is pending.
MAR: Dexamethasone 6 mg once on 01/16/2024 at 13:13.
PMH: migraine with aura, allergic rhinitis, HTN, DLP. type II DM, hepatic steatosis, JESSE, MDD, obesity, ORALIA, vit B12 deficiency
PSH:left knee arthroscopy, R median nerve release, lasik
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
FH:DM, no history of migraines
All:NKDA
ROS:Constitutional: Negative. Negative for chills, fever and unexpected weight change.
HENT: Positive for chronic tinnitus, positive for vertigo.
Eyes: Negative. Negative for photophobia, pain and visual disturbance.
Respiratory: Negative for cough, choking and shortness of breath.
Cardiovascular: Negative for chest pain, palpitations and leg swelling.
Gastrointestinal: Positive for nausea.
Endocrine: Negative. Negative for cold intolerance.
Genitourinary: Negative for dysuria, flank pain and urgency.
Musculoskeletal: Negative for back pain, gait problem, neck pain and neck stiffness.
Skin: Negative for rash.
Allergic/Immunologic: Negative. Negative for immunocompromised state.
Neurological: Positive for headache, imbalance
General: Well developed. In no acute distress.
Cardio: Regular rate and rhythm without murmur. Extremities are without cyanosis or edema.
Neuro:
Mental Status: Alert, oriented to person, place, and date. Normal attention and recall. Good fund of knowledge. Follows complex requests across the midline. Comprehension, naming, and repetition intact. Immediate and delayed recall 3/3.
Cranial Nerves: . Pupils are equally round and reactive to light. EOMs full. Visual guzman full to confrontation. No ptosis. No nystagmus. V1-V3 intact to light touch and pinprick bilaterally, symmetric. Face symmetric. Normal hearing AU.
The palate elevated well. SCMs and traps 5/5. Tongue midline. No dysarthria.
Motor: Normal bulk and tone. No pronator or arm drift. Strength 5/5 throughout. No clonus.
Reflexes: 2+ throughout the upper extremities and knees. 2/2 in AJs. Plantar responses flexor bilaterally.
Sensory: Normal pinprick, vibration and JPS.
Coordination: No dysmetria or tremor.
Gait: deferred
Assessment and Plan:
I. Status migrainous
II. Episodic migraine with aura.
III. Vertigo.
-IV hydration
-IV Toradol 30 mg, Reglan 10 mg, Benadryl 25 mg Q8h IV PRN for moderate to severe headache.
-Brain MRI wo jesse
-EKG
-Start Topamax 25 mg BID with bicarb monitiring
-ENT consult(OP audiometry)
-PRN Sumatriptan 6 mg once. If symptoms persist or return, may repeat dose after >= hour. Maximum dose: 12 mg per 24 hours.
I personally reviewed all radiology and labs along with past medical records pertinent to current medical problems. Total time spent in patient care is 35 minutes.
Thank you for allowing us to participate in the care of this patient. We will continue to follow. Please do not hesitate to contact us with any questions or concerns.
Objective Data
Vital Signs
Temp Pulse Resp BP Pulse Ox
36.6 C 75 22 124/78 97
01/17/24 07:42 01/17/24 07:42 01/17/24 07:42 01/17/24 07:42 01/17/24 07:42
Lab Results
01/16/24 13:21
01/17/24 06:26
Sodium 142 mmol/L (135-145) 01/17/24 06:26
Potassium 4.2 mmol/L (3.5-5.1) 01/17/24 06:26
BUN 17 mg/dl (9-20) 01/17/24 06:26
Glucose 132 mg/dl (70-99) H 01/17/24 06:
Calcium 9.2 mg/dl (8.4-10.2) 01/17/24 06:26
Patient Allergies
bee venom protein (honey bee) Allergy (Verified 01/15/24 15:54)
severe localized swelling
[2024-01-17 11:59] LABS: Glucose - Point of Care 154 mg/dl (70-99)
[2024-01-17] MEDS: TOPAMAX 25 MG PO ×2 (12:04→22:38)
[2024-01-17 14:28] LABS: Glucose - Point of Care 111 mg/dl (70-99)
[2024-01-17 15:52] VITALS: BP 132/87
[2024-01-17] MEDS: LIPITOR 10 MG PO (17:24)
[2024-01-17] MEDS: IMITREX 6 MG SC (17:28)
[2024-01-17 18:45] LABS: Glucose - Point of Care 89 mg/dl (70-99)
[2024-01-17 21:20] LABS: Glucose - Point of Care 131 mg/dl (70-99)
[2024-01-17] MEDS: ZYRTEC 10 MG PO (22:38)
[2024-01-17] MEDS: COZAAR 25 MG PO (22:38)
[2024-01-17 23:23] VITALS: BP 146/82
[2024-01-18] MEDS: NSS 1000 IV (03:05)
[2024-01-18 07:50] VITALS: BP 116/78
[2024-01-18 07:50] LABS: Glucose - Point of Care 81 mg/dl (70-99)
[2024-01-18] MEDS: TOPAMAX 25 MG PO (08:27)
[2024-01-18] MEDS: TRICOR 145 MG PO (08:27)
[2024-01-18] MEDS: WELLBUTRIN XL (24 hour extended release) 300 MG PO (08:27)
[2024-01-18] MEDS: CELEXA 40 MG PO (08:28)
[2024-01-18 08:46] LABS: Blood Urea Nitrogen 16 mg/dl (9-20); Calcium 9.4 mg/dl (8.4-10.2); Carbon Dioxide 23 mmol/L (22-30); Chloride 107 mmol/L (98-107); Estimated Creatinine Clearance 113 ml/min; Glucose 71 mg/dl (70-99); Potassium 4.2 mmol/L (3.5-5.1); Sodium 143 mmol/L (135-145); eGFR > 60.00
--- NOTE | 2024-01-18 12:06 | W.PN.NEURO.1 ---
Today's Communication / Plan
-
.
Subjective/Objective
Subjective Data
Date of Service: January 18, 2024
Mr. Vance reports feeling hot that he believes started after he started Topamax. His headache had improved to mild within half an hour after he was given Imitrex.
His headache level was 1-5 yesterday. No change in vision, emesis, vertigo. He has been afebrile and normotensive.
Brain MRI showed mild to moderate patchy mucosal thickening of the ethmoid sinuses. Mild mucosal thickening of the posterior left maxillary sinus.
PMH: migraine with aura, allergic rhinitis, HTN, DLP. type II DM, hepatic steatosis, JESSE, MDD, obesity, ORALIA, vit B12 deficiency
PSH: left knee arthroscopy, R median nerve release, lasik
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
FH:DM, no history of migraines
All:NKDA
ROS:Constitutional: Negative. Negative for chills, fever and unexpected weight change.
HENT: Positive for chronic tinnitus, positive for vertigo.
Eyes: Negative. Negative for photophobia, pain and visual disturbance.
Respiratory: Negative for cough, choking and shortness of breath.
Cardiovascular: Negative for chest pain, palpitations and leg swelling.
Gastrointestinal: Positive for nausea.
Endocrine: positive forhot intolerance
Genitourinary: Negative for dysuria, flank pain and urgency.
Musculoskeletal: Negative for back pain, gait problem, neck pain and neck stiffness.
Skin: Negative for rash.
Allergic/Immunologic: Negative. Negative for immunocompromised state.
Neurological: Positive for headache
General: Well developed. In no acute distress.
Cardio: Regular rate and rhythm without murmur. Extremities are without cyanosis or edema.
Neuro:
Mental Status: Alert, oriented to person, place, and date. Normal attention and recall. Good fund of knowledge. Follows complex requests across the midline. Comprehension, naming, and repetition intact. Immediate and delayed recall 3/3.
Cranial Nerves: . Pupils are equally round and reactive to light. EOMs full. Visual guzman full to confrontation. No ptosis. No nystagmus. V1-V3 intact to light touch and pinprick bilaterally, symmetric. Face symmetric. Normal hearing AU.
The palate elevated well. SCMs and traps 5/5. Tongue midline. No dysarthria.
Motor: Normal bulk and tone. No pronator or arm drift. Strength 5/5 throughout. No clonus.
Coordination: No dysmetria or tremor.
Gait: deferred
Assessment and Plan:
I. Status migrainous, significantly improved.
II. Episodic migraine with aura.
III. Vertigo.
-Hold Topamax
-Sumatriptan 6 mg PRN. Maximum dose: 12 mg per 24 hours.
-Start Verapamil 40 mg TID with close BP and HR monitoring
-Nurtec 75 mg PRN if available
-OP Neurology follow up in 1 week
-The case was discussed with patient and his pouse.
I personally reviewed all radiology and labs along with past medical records pertinent to current medical problems. Total time spent in patient care is 40 minutes.
Thank you for allowing us to participate in the care of this patient. We will continue to follow. Please do not hesitate to contact us with any questions or concerns.
Objective Data
Vital Signs
Temp Pulse Resp BP Pulse Ox
36.8 C 83 16 116/78 97
01/18/24 07:50 01/18/24 07:50 01/18/24 07:50 01/18/24 07:50 01/18/24 07:50
Lab Results
01/16/24 13:21
01/18/24 07:48
Sodium 143 mmol/L (135-145) 01/18/24 07:48
Potassium 4.2 mmol/L (3.5-5.1) 01/18/24 07:48
BUN 16 mg/dl (9-20) 01/18/24 07:48
Glucose 71 mg/dl (70-99) 01/18/24 07:48
Calcium 9.4 mg/dl (8.4-10.2) 01/18/24 07:48
Patient Allergies
bee venom protein (honey bee) Allergy (Verified 01/15/24 15:54)
severe localized swelling
Vital Signs and Labs
-
Vital Signs and Labs:
Vital Signs
Temp Pulse Resp BP Pulse Ox
36.8 C 83 16 116/78 97
01/18/24 07:50 01/18/24 07:50 01/18/24 07:50 01/18/24 07:50 01/18/24 07:50
Lab Results
01/16/24 13:21
01/18/24 07:48
Sodium 143 mmol/L (135-145) 01/18/24 07:48
Potassium 4.2 mmol/L (3.5-5.1) 01/18/24 07:48
BUN 16 mg/dl (9-20) 01/18/24 07:48
Glucose 71 mg/dl (70-99) 01/18/24 07:48
Calcium 9.4 mg/dl (8.4-10.2) 01/18/24 07:48
Medications
-
Medications:
Generic Name Dose Route Start Last Admin
Trade Name Freq PRN Reason Stop Dose Admin
Acetaminophen 650 mg 01/16/24 19:14 01/16/24 20:27
Acetaminophen 325 Mg Tablet PO 02/13/24 19:13 650 mg
Q4HPRN PRN Administration
mild pain/FLOWERS/temp> 100.4F
Atorvastatin Calcium 10 mg 01/16/24 19:30 01/17/24 17:24
Atorvastatin (Lipitor) 10 Mg Tablet PO 02/13/24 19:29 10 mg
QPM SADI Administration
Bisacodyl 10 mg 01/16/24 19:14
Bisacodyl 10 Mg Rectal Suppository RECTAL 02/13/24 19:13
[id number] PRN
constipation
Bupropion HCl 300 mg 01/17/24 08:00 01/18/24 08:27
Bupropion (24hr) Extended Release 300 Mg Tablet PO 02/14/24 07:59 300 mg
DAILY SADI Administration
Cetirizine HCl 10 mg 01/16/24 22:00 01/17/24 22:38
Cetirizine Hcl 10 Mg Tablet PO 02/13/24 21:59 10 mg
HS SADI Administration
Citalopram Hydrobromide 40 mg 01/17/24 08:00 01/18/24 08:28
Citalopram 40 Mg Tablet PO 02/14/24 07:59 40 mg
DAILY SADI Administration
Diphenhydramine HCl 25 mg 01/16/24 19:14 01/17/24 09:31
Diphenhydramine 50 Mg/Ml 1 Ml Vial IV 02/13/24 19:13 25 mg
Q8HPRN PRN Administration
migraine cocktail/headache
Fenofibrate 145 mg 01/17/24 08:00 01/18/24 08:27
Fenofibrate 145 Mg Tablet PO 02/14/24 07:59 145 mg
DAILY SADI Administration
Ketorolac Tromethamine 30 mg 01/16/24 19:24 01/17/24 09:30
Ketorolac 30 Mg/Ml Injection IV 30 mg
Q8HPRN PRN Administration
moderate pain/headache
Losartan Potassium 25 mg 01/16/24 22:00 01/17/24 22:38
Losartan 25 Mg Tablet PO 02/13/24 21:59 25 mg
HS SADI Administration
Metoclopramide HCl 10 mg 01/16/24 19:14 01/17/24 09:29
Metoclopramide 10 Mg/2 Ml Vial IV 02/13/24 19:13 10 mg
Q8HPRN PRN Administration
headache/nausea
Polyethylene Glycol 17 grams 01/16/24 19:14
Polyethylene Glycol Powder 17 Grams Packet PO 02/13/24 19:13
DAILYPRN PRN
constipation
Senna/Docusate Sodium 1 tablet 01/16/24 19:14
Docusate W/Senna (Margarita-Colace) Tablet PO 02/13/24 19:13
BIDPRN PRN
constipation
Sodium Chloride 0 flush 01/16/24 19:00
Sodium Chloride 0.9% (Flush) Syringe IV 02/13/24 18:59
PER PROTOCOL SADI
Sumatriptan Succinate 6 mg 01/17/24 11:06 01/17/24 17:28
Sumatriptan 6 Mg/0.5 Ml Vial SC 02/14/24 11:59 6 mg
DAILY PRN Administration
migarine headache
Topiramate 25 mg 01/17/24 12:00 01/18/24 08:27
Topiramate 25 Mg Tablet PO 02/14/24 11:59 25 mg
BID SADI Administration
--- NOTE | 2024-01-18 12:33 | W.PN.HOSP.TC ---
Today's Communication/Plan
-
meds per neurology
Assessment / Plan
Assessment / Plan
#Status migrainous attack with aura
#History of migraines
#Vertigo
s/p IV fluids
ESR/CRP/D-dimer wnl.
Migraine cocktail as prescribed by neurology recommended Toradol, Reglan Benadryl
Imitrex as needed.
Patient states willing to continue trying Topamax 25 mg twice daily.
MRI brain negative for acute pathology.
Outpatient neurology follow-up for further CGRP antagonist
#Insulin-dependent diabetes mellitus
Continue home insulin pump
Hold metformin
Continue with Accu-Cheks
ORALIA on CPAP
Continue CPAP
Hyperlipidemia
Cont fenofibrate
Primary htn
Continue with losartan.
Obesity
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
Mood disorder
Cont bupropion/celexa
DVT prophylaxis-scds
d/w with spouse at bedside in details.
Discussed with neurology.
More than 30 minutes spent in discharge including
Final examination of the patient
Summarizing hospital stay
Instructions for continuing care to all relevant caregivers
Preparation of discharge records, prescriptions, and referral forms
Total time spent (in minutes): 52
Anticipated Discharge: Today
Subjective/Interval History
-
Date of Service: January 18, 2024
states feeling hot
mild headache but received meds
Objective Data
-
Labs:
Laboratory Results
01/18/24
07:48
Sodium 143
Potassium 4.2
Chloride 107
Carbon Dioxide 23
BUN 16
Creatinine 1.0
Glucose 71
Calcium 9.4
Vital Signs:
Vital Signs
Temp Pulse Resp BP Pulse Ox
98.2 F 83 16 116/78 97
01/18/24 07:50 01/18/24 07:50 01/18/24 07:50 01/18/24 07:50 01/18/24 07:50
I&O
01/17/24 01/18/24 01/19/24
06:59 06:59 06:59
Intake Total 480 / 480 2160 / 2160
Balance 480 / 480 2160 / 2160
Physical Exam
-
General: Well Developed and No Apparent Distress
HEENT: Normocephalic, Atraumatic and Moist Mucous Membranes
Respiratory: Clear to Auscultation
Cardiac: Regular Rhythm and S1/S2; Negative Murmur, Rub or Gallop
GI: Soft, Nontender, Nondistended and Normal Bowel Sounds; Negative Organomegaly
Rectal: Deferred by Provider
Musculoskeletal: No Clubbing, No Cyanosis and No Edema
Skin: Negative Rash
Neuro: Awake, Alert, Oriented, AO x 3, No Motor Deficits and Nonfocal/Grossly Intact
Psych: Calm
[2024-01-18 12:47] LABS: Glucose - Point of Care 99 mg/dl (70-99)
--- NOTE | 2024-01-18 13:19 | W.DCSUMMARY ---
Discharge Summary
Discharge Data
Date of Admission: 01/16/24
Date of Discharge: 01/18/24
-
Pending Results: No
Hospital Course
48-year-old male past medical history of mood disorder, insulin-dependent diabetes on insulin pump, primary hypertension morbid obesity, ORALIA on CPAP who is presenting from home with complaint of headache. Patient with history of migraine headache
and has been without any symptoms for quite some period of time. Recently for the past 2 weeks patient with worsening of headache. Patient was admitted to hospital started on migraine cocktail. Patient was eval by neurology. Patient stated IV
Toradol, Benadryl and Reglan. Patient was also started on triptans. Patient was started on IV fluid resuscitation. MRI of the brain was done which was negative for acute pathology. Patient with improvement in headache will be discharged home on
prophylactic migraine medication with Topamax 25 mg p.o. twice daily which patient agreed (Pt stated would like to hold off on verapamil) and triptan as needed. Patient to follow-up with his outpatient neurologist.
Discharge Plan
-
Patient Disposition: Home (Routine Discharge)
Discharge Diagnosis/Procedures: Status migrainous
Episodic migraine with aura.
Condition: Fair
Diet: Diabetic, Carb Controlled
Activity: As tolerated
Driving Restrictions: No driving for 24 hours
Bathing Restrictions: None
Activity Restrictions/Additional Instructions:
Follow-up with your primary neurologist.
Referrals:
Jyoti Chau MD [Family Provider] - in less than 1 week
Prescriptions:
New
topiramate 25 mg Tablet
25 mg PO BID 30 Days Qty: 60 0RF
sumatriptan succinate [Imitrex] 50 mg tablet
50 mg PO DAILY PRN (Reason: migraine headache) Qty: 10 0RF
Continued
simvastatin 20 MG tablet
20 mg PO QPM
metformin 1,000 MG tablet
1,000 mg PO BID
losartan 25 MG tablet
25 mg PO HS
fenofibrate nanocrystallized 145 MG tablet
145 mg PO DAILY
citalopram 40 mg tablet
40 mg PO DAILY
cetirizine [Zyrtec] 10 mg Tablet
10 mg PO HS
bupropion HCl 300 mg tablet extended release 24 hr
300 mg PO DAILY
Lyumjev U-100 Insulin 100 unit/mL solution
0 unit SC .VIA PUMP
Patient Comments:
01/16/2024: 1:6 carbs, 1:12 correction
Mounjaro 2.5 mg/0.5 mL pen injector
2.5 mg SC FR
Discharge Orders:
Discharge Patient (As Directed); Ordered 01/18/24
Ordered By: Cecilio Malave
Discharge Date and Time
Print Language: ZAMBIAN
--- NOTE | 2024-01-18 15:01 | PTCARENOTE ---
Reviewed discharge instructions with patient. Patient verbalizes understanding of teaching and denies questions at this time. Peripheral IV removed. Left via wheelchair with staff member. to transport home.
== END 2024-01-18 15:05 | disposition home or self-care (01) ==
LOC: 4 EAST ACU 17:08
PROVIDERS: ADMITTING PHYSICIAN Hospitalist; EMERGENCY PHYSICIAN Emergency Medicine; FAMILY PHYSICIAN Family Medicine; OTHER PHYSICIAN Psychiatry & Neurology Neurology
DX: G43.101 Migraine with aura, not intractable, with status migrainosus (principal); R42 Dizziness and giddiness; R11.0 Nausea; J45.909 Unspecified asthma, uncomplicated; M19.90 Unspecified osteoarthritis, unspecified site; E11.9 Type 2 diabetes mellitus without complications; E78.00 Pure hypercholesterolemia, unspecified; I10 Essential (primary) hypertension; G47.33 Obstructive sleep apnea (adult) (pediatric); F41.1 Generalized anxiety disorder; E53.8 Deficiency of other specified B group vitamins; K76.0 Fatty (change of) liver, not elsewhere classified; F39 Unspecified mood [affective] disorder; E66.01 Morbid (severe) obesity due to excess calories; Z68.31 Body mass index [BMI] 31.0-31.9, adult; Z56.6 Other physical and mental strain related to work; Z91.030 Bee allergy status; Z79.84 Long term (current) use of oral hypoglycemic drugs; Z79.85 Long-term (current) use of injectable non-insulin antidiabetic drugs; Z79.4 Long term (current) use of insulin; Z83.3 Family history of diabetes mellitus; Z82.3 Family history of stroke; Z96.41 Presence of insulin pump (external) (internal)
CPT/HCPCS: 70551; 80048; 82962; 85025; 85379; 85652; 86140; 93005; 96361; 96374; 96375; 99284; G0378

== ENCOUNTER 2024-01-25 13:35 | Emergency (ER) | payer BC, SELFPAY ==
[2024-01-25 13:37] VITALS: BP 127/88
--- NOTE | 2024-01-25 14:52 | ED.MUSCINJ ---
HPI-Injury
General
Chief Complaint: Musculo-Skeletal Complaint
Source: patient
Exam Limitations: none
Time Seen by Provider: 01/25/24 14:07
Nursing documentation reviewed up to this point in time: agreed with
History of Present Illness-Injury
Is this injury a work related problem?: No
Is pt an associate of [facility]?: No
Initial Injury comments:
Patient states he fell from ladder. Reports pain to left ankle. Ladder then hit proximal tib/fib. Unable to bear weight. 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
Past History
Past History
ED Past Medical History: Asthma, HTN, Hypercholesterolemia, IDDM, Psychiatric and Other (Obstructive sleep apnea, degenerative joint disease)
ED Past Surgical History: Orthopedic
Social History
Tobacco: Non-smoker
Alcohol: None
Drug: None
Personal:
Living: with family
Family History
Family History: Diabetes and Other (Father had a stroke)
Review of Systems
Review of Systems
Allergies reviewed?: Yes
All Other Systems: ROS reviewed and negative except as documented in HPI and ROS
Constitutional: Reports no symptoms
EENT: Reports no symptoms
Respiratory: Reports no symptoms
Cardiac: Reports no symptoms
ABD/GI: Reports no symptoms
Musculoskeletal: Reports joint pain (Pain to left ankle)
Skin: Reports other (abrasion to proximal lower leg)
Neurological: Reports no symptoms
Psychiatric: Reports no symptoms
Musculoskeletal Injury Exam
Musculoskeletal Injury Exam
Left Ankle:
Pain with Movement?: Moderate
Tender to palpation?: Moderate
Soft tissue swelling?: Mild
External deformity and angulation?: None
Joint effusion?: None
Contusion?: None
Hematoma-local bleeding into tissue?: Mild
Strain- Sprain- Tear (Connective tissue injury)?: Mild
Crepitus with movement?: No
Joint instability?: No
Malalignment/deformity?: No
Range of motion: Limited
Distal skin color and temperature: normal-warm & good color
Capillary Refill: normal
Normal distal neurovascular exam?: Yes
Peripheral Pulses: posterior tibial (left): 3+ and dorsalis pedis (left): 3+
Proximal Lower Leg:
Pain with Movement?: Mild
Tender to palpation?: Moderate
Soft tissue swelling?: Mild
External deformity and angulation?: None
Joint effusion?: None
Contusion?: Moderate
Hematoma-local bleeding into tissue?: Moderate
Strain- Sprain- Tear (Connective tissue injury)?: Moderate
Crepitus with movement?: No
Joint instability?: No
Malalignment/deformity?: No
Range of motion: Full
Distal skin color and temperature: normal-warm & good color
Capillary Refill: normal
Normal distal neurovascular exam?: Yes
Skin Exam
Abrasion
Left Lower Proximal Leg:
Description of abrasion: superfical/clean
Phy Exam
General Physical Exam
General Presentation: well appearing and no apparent distress
General age: appears stated age
General Skin: warm and dry
General Habitus: normal
General Mental: alert
Musculoskeletal Exam
Musculoskeletal Exam: neuro vasc intact and other (achilles intact. No tenderness base of 5th)
Skin Exam
Skin Exam: normal color, warm/dry and no rash
Psychiatric Exam
Psychiatric Exam: normal mood/affect
Injury Course
Orders/Labs/Results
Orders:
Orders
01/25/24 13:35
Ankle, left 3 view CR [CR Ankle - Left Min 3 Views ] Urgent
Comment:
Reason For Exam: fell off a ladder
01/25/24 14:20
Tibia/Fibula, Left 2 View [CR Leg Tibia/fibula Left 2 Vw] Urgent
Comment:
Reason For Exam: trauma
01/25/24 14:57
Wound Dressing- Treatment ONCE
Location of Wound: left knee
Treatment of Wound: antibiotic ointment, bandaid
Crutches-Treatment ONCE
Ortho Boot Left- Treatment ONCE
Short or tall?: Tall
*Radiology
Radiology exam reviewed: radiology read reviewed
*Pulse Oximetry
Patient hypoxic: no
*Critical Care Note
Total Time (30-74mins, 75-104mins- exclusive of procedures): Not Applicable
ED Attending Note
-
Portions of this chart may have been created with voice recognition software.� Occasional wrong word or��sound alike� substitutions may have occurred due to the inherent limitations of voice recognition software.
Discharge Plan
Departure
Patient Disposition: Home (Routine Discharge)
Date of Disposition: 01/25/24
Time of Disposition: 14:59
Patient with high blood pressure during this ER visit?: No
Condition: Good
Covid-19: Not Applicable
Discharge Problem:
Ankle sprain
Instructions: How to Use Crutches, Ibuprofen, Using Cold for Pain, Ankle Sprain ED, Wound Care ED
Prescriptions:
No Action
simvastatin 20 MG tablet
20 mg PO QPM
metformin 1,000 MG tablet
1,000 mg PO BID
losartan 25 MG tablet
25 mg PO HS
fenofibrate nanocrystallized 145 MG tablet
145 mg PO DAILY
citalopram 40 mg tablet
40 mg PO DAILY
cetirizine [Zyrtec] 10 mg Tablet
10 mg PO HS
bupropion HCl 300 mg tablet extended release 24 hr
300 mg PO DAILY
Lyumjev U-100 Insulin 100 unit/mL solution
0 unit SC .VIA PUMP
Patient Comments:
01/16/2024: 1:6 carbs, 1:12 correction
Mounjaro 2.5 mg/0.5 mL pen injector
2.5 mg SC FR
topiramate 25 mg Tablet
25 mg PO BID 30 Days Qty: 60 0RF
sumatriptan succinate [Imitrex] 50 mg tablet
50 mg PO DAILY PRN (Reason: migraine headache) Qty: 10 0RF
Referrals:
Jyoti Chau MD [Family Provider] -
Dominic Taveras MD [Active] - (Follow up if your symptoms do not improve over then next week.)
Interventions
Interventions:
*Risk Screen - Suicide Last Done: 01/25/24 13:39
*General Assessment Last Done: 01/25/24 14:30
*Neglect/Abuse Screening Last Done: 01/25/24 13:39
ED- Fall Risk Assessment Last Done: 01/25/24 14:30
*ED COVID-19 Vaccine History Last Done: 01/25/24 14:30
ED-Musculoskeletal Assessment Last Done: 01/25/24 14:30
Discharge Date and Time
Print Language: IVORIAN
[2024-01-25 15:30] VITALS: BP 131/68
== END 2024-01-25 15:30 | disposition home or self-care (01) ==
LOC: EMR 13:35
PROVIDERS: EMERGENCY PHYSICIAN Emergency Medicine; FAMILY PHYSICIAN Family Medicine
DX: S93.402A Sprain of unspecified ligament of left ankle, initial encounter (principal); W11.XXXA Fall on and from ladder, initial encounter; J45.909 Unspecified asthma, uncomplicated; I10 Essential (primary) hypertension; E78.00 Pure hypercholesterolemia, unspecified; E11.9 Type 2 diabetes mellitus without complications; G47.33 Obstructive sleep apnea (adult) (pediatric); Z82.3 Family history of stroke; Z83.3 Family history of diabetes mellitus
CPT/HCPCS: 99283; 73590; 73610

== ENCOUNTER 2024-02-03 10:51 | Emergency (ER) | payer BC, SELFPAY ==
[2024-02-03 10:55] VITALS: BP 139/87
--- NOTE | 2024-02-03 13:11 | ED.GENMED ---
History of Present Illness
General
Chief Complaint: Back Pain
Source: patient
Exam Limitations: none
Time Seen by Provider: 02/03/24 12:38
History of Present Illness
History of Present Illness:
48-year-old male presents complaining of lower back pain that radiates to the right leg. This is been getting worse over the past 2 to 3 days. Of note, patient was here about 10 days ago for an ankle sprain where he fell off a ladder. He had no
significant back pain at the time. He was placed in a walking boot for his ankle sprain. Has been using Tylenol for his pain. He denies any bowel or bladder dysfunction. He denies any fever. The pain is made worse with motion and position
change. He denies numbness to the legs or perianal anesthesia.
Past History
Past History
ED Past Medical History: Asthma, HTN, Hypercholesterolemia, IDDM, Psychiatric and Other (Obstructive sleep apnea, degenerative joint disease)
ED Past Surgical History: Orthopedic
Social History
Tobacco: Non-smoker
Alcohol: None
Drug: None
Personal:
Living: with family
Family History
Family History: Diabetes and Other (Father had a stroke)
Phy Exam
Physical Exam
Physical Exam:
General: Well-appearing male no acute respiratory distress
HEENT: Normocephalic atraumatic
Heart: Regular rate and rhythm
Lungs: Clear no wheeze
Musculoskeletal exam: Patient is tender over the right paraspinous area of the lumbar spine
Neurologic: Good sensation and strength to lower extremities bilaterally. Bilateral patellar reflexes are 2+.
Skin is warm no rash
Course
Orders/Labs/Results
Orders:
Orders
02/03/24 10:59
Lumbar Spine Complete, 4 View [CR Lumbar Spine Comp Min 4 Vw*] Urgent
Comment:
Reason For Exam: back pain
02/03/24 13:09
Cyclobenzaprine HCl [Flexeril] 10 mg PO NOW STA
Prednisone [Deltasone] 50 mg PO NOW STA
Vital Signs
Initial and Last Documented VS:
Initial Vital Signs
Temp Pulse Resp BP Pulse Ox
98.0 F 89 18 139/87 99
02/03/24 10:55 02/03/24 10:55 02/03/24 10:55 02/03/24 10:55 02/03/24 10:55
Last Documented Vital Signs
Temp Pulse Resp BP Pulse Ox
98.0 F 89 18 139/87 99
02/03/24 10:55 02/03/24 10:55 02/03/24 10:55 02/03/24 10:55 02/03/24 10:55
MDM/Problems Addressed
Differential Diagnosis Includes:
Low back pain with radiation down the right leg. No signs of cauda equina. No fever to suggest infectious source. This is radiculopathy versus muscular strain
X-rays of the lumbar spine were ordered through triage to have personally reviewed and demonstrate mild degenerative changes but no obvious acute traumatic finding. Patient has insulin-dependent diabetes. He is currently be treated for an ankle
sprain in a boot. It is possible that the walking boot may have thrown his gait off some and irritated his back. Nonetheless will prescribe steroids and muscle relaxers. He knows to be alert for any rise in his serum glucose secondary to the
steroids. He will adjust insulin as needed. He has an appointment with orthopedics in 3 days which I think is good timing for follow-up
*Critical Care Note
Total Time (30-74mins, 75-104mins- exclusive of procedures): Not Applicable
ED Attending Note
-
Portions of this chart may have been created with voice recognition software.� Occasional wrong word or��sound alike� substitutions may have occurred due to the inherent limitations of voice recognition software.
Discharge Plan
Departure
Patient Disposition: Home (Routine Discharge)
Date of Disposition: 02/03/24
Time of Disposition: 13:16
Patient with high blood pressure during this ER visit?: No
Discharge Problem:
Lumbar back pain
Instructions: Radiculopathy (DC)
Prescriptions:
New
prednisone 10 mg Tablet
See Rx Instructions .ROUTE .COMPLEX Qty: 30 0RF
Rx Instructions:
Take By Mouth:
40 mg daily x3 days, 30 mg daily x3 days,
20 mg daily x3 days, 10 mg daily x3 days.
cyclobenzaprine 10 mg tablet
10 mg PO TID PRN (Reason: spasm) Qty: 10 0RF
No Action
simvastatin 20 MG tablet
20 mg PO QPM
metformin 1,000 MG tablet
1,000 mg PO BID
losartan 25 MG tablet
25 mg PO HS
fenofibrate nanocrystallized 145 MG tablet
145 mg PO DAILY
citalopram 40 mg tablet
40 mg PO DAILY
cetirizine [Zyrtec] 10 mg Tablet
10 mg PO HS
bupropion HCl 300 mg tablet extended release 24 hr
300 mg PO DAILY
Lyumjev U-100 Insulin 100 unit/mL solution
0 unit SC .VIA PUMP
Patient Comments:
01/16/2024: 1:6 carbs, 1:12 correction
Mounjaro 2.5 mg/0.5 mL pen injector
2.5 mg SC FR
topiramate 25 mg Tablet
25 mg PO BID 30 Days Qty: 60 0RF
sumatriptan succinate [Imitrex] 50 mg tablet
50 mg PO DAILY PRN (Reason: migraine headache) Qty: 10 0RF
Referrals:
Jyoti Chau MD [Family Provider] -
Activity Restrictions/Additional Instructions:
Rest. Continue with warm compresses. Use steroid as directed. Use muscle relaxer as needed for spasm. Follow-up with orthopedics as planned. Return if worse
Discharge Date and Time
Print Language: KHMER
[2024-02-03] MEDS: FLEXERIL 10 MG PO (13:30)
[2024-02-03] MEDS: DELTASONE 50 MG PO (13:30)
[2024-02-03 13:43] VITALS: BP 145/94
== END 2024-02-03 13:44 | disposition home or self-care (01) ==
LOC: EMR 10:51
PROVIDERS: EMERGENCY PHYSICIAN Emergency Medicine; FAMILY PHYSICIAN Family Medicine; OTHER PHYSICIAN Physician Assistant
DX: M54.50 Low back pain, unspecified (principal); E11.9 Type 2 diabetes mellitus without complications; E78.00 Pure hypercholesterolemia, unspecified; G47.33 Obstructive sleep apnea (adult) (pediatric); I10 Essential (primary) hypertension; J45.909 Unspecified asthma, uncomplicated; Z79.4 Long term (current) use of insulin; Z87.828 Personal history of other (healed) physical injury and trauma
CPT/HCPCS: 99283; 72110